=== PATIENT | male | born 1980 | race African-American/Black ===

== ENCOUNTER 2019-07-22 18:26 | Emergency (ER) | payer OTHER ==
[~2019-07-22] VITALS: Ht 180.3 cm; Wt 79.4 kg
[2019-07-22 18:29] VITALS: BP 90/57
--- NOTE | 2019-07-22 20:23 | NUR ---
BIBA TO ER BED 2
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
--- NOTE | 2019-07-22 20:37 | NUR ---
PT TAKEN TO XRAY
[2019-07-22] MEDS ORDERED: KETOROLAC 60 MG/2 ML VIAL IM ONE (21:25)
--- NOTE | 2019-07-22 23:18 | NUR ---
DISCHARGE PAPERS GIVEN TO PT AND HIS MOTHER. PT STATES RELIEF. VSS. RX OF NORCO AND MOTRIN GIVEN. SIDE EFFECTS EXPLAINED. INSTRUCTED TO F/U WITH PCP AND WHEN TO RETURN TO ER. PT VERBALLIZED UNDERSTANDING OF DC INSTRUCTIONS. MOTHER AT BEDSIDE ALSO TAKING INSTRUCTIONS FOR PT'S CARE. MOTHER VERBALLIZED UNDERSTANDING OF DC INSTRUCTTIONS. ALL QESTIONS ANSWERED.
--- NOTE | 2019-07-22 23:42 | NUR ---
[facility] TRANSPORT AT THIS TIME. PT IN BED WITH MOTHER AND SISTER AT BEDSIDE. CONTINUE TO MONITOR.
--- NOTE | 2019-07-23 00:05 | NUR ---
[facility] SCHEDUALED TO P/U PT. ETA 04:00.
--- NOTE | 2019-07-23 01:10 | NUR ---
PT C/O OF NECK PAIN 04/26. ERMD MADE AWARE. WILL CONTINUE TO MONITOR.
[2019-07-23] MEDS ORDERED: MORPHINE SULFATE 4 MG/ML SYR IM ONE (01:15)
--- NOTE | 2019-07-23 02:13 | NUR ---
PT LAYING ON BED. STATES PAIN LEVEL IS IMPROVED; 01/24. PT VSS. WILL CONTINUE TO MONITOR.
[2019-07-23 04:20] VITALS: BP 119/71
--- NOTE | 2019-07-23 04:20 | NUR ---
PT DISCHARGED. REPORT GIVEN [facility]. PT TRANSFERRED FROM BED TO [facility]. PT STABLE. PT CARE TRANSFERRED TO [facility]CE[facility] TRANSPORT STAFF.
== END 2019-07-23 04:50 | disposition home or self-care (01) ==
LOC: MED 18:26
DX: S13.9XXA Sprain of joints and ligaments of unspecified parts of neck, initial encounter (principal); Z98.890 Other specified postprocedural states; Z93.3 Colostomy status; V49.88XA Car occupant (driver) (passenger) injured in other specified transport accidents, initial encounter; Y93.89 Activity, other specified; Y92.488 Other paved roadways as the place of occurrence of the external cause; Y99.8 Other external cause status
CPT/HCPCS: 72040; 96372; 99283; J1885; J2270